=== PATIENT | female | born 2000 | race Caucasian/White ===

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

== ENCOUNTER 2021-07-28 15:36 | Outpatient (NON) | payer BC, SELFPAY | END 2021-07-28 15:37 | disposition home or self-care (01) | LOC: CHSLAB 15:39 | PROVIDERS: Visit Provider Nurse Practitioner Family | DX: Z11.3 Encounter for screening for infections with a predominantly sexual mode of transmission (principal); R10.31 Right lower quadrant pain; R10.32 Left lower quadrant pain; N39.0 Urinary tract infection, site not specified | CPT/HCPCS: 87077; 87086; 87088; 87186; 87491; 87591; 87661 ==

== ENCOUNTER 2022-02-16 09:19 | Outpatient (CLI) | payer BC, SELFPAY ==
[2022-02-16 10:14] LABS: Strep Group A RT-PCR Not Detected (Negative)
== END 2022-02-16 09:20 | disposition home or self-care (01) ==
LOC: CHSLAB 09:24
PROVIDERS: PCP Nurse Practitioner Family; Visit Provider Nurse Practitioner Family
DX: J02.9 Acute pharyngitis, unspecified (principal)
CPT/HCPCS: 87651

== ENCOUNTER 2022-11-04 15:37 | Outpatient (NON) | payer SELFPAY | END 2022-11-04 15:38 | disposition home or self-care (01) | LOC: CHSLAB 15:41 | PROVIDERS: Visit Provider Nurse Practitioner Family | DX: Z12.4 Encounter for screening for malignant neoplasm of cervix (principal); Z11.51 Encounter for screening for human papillomavirus (HPV); Z11.8 Encounter for screening for other infectious and parasitic diseases | CPT/HCPCS: 87491; 87591; 88141; 88175; G0145 ==

== ENCOUNTER 2023-01-30 01:09 | Emergency (ER) | payer BC, SELFPAY ==
[2023-01-30] VITALS (7 sets, daily range): BP systolic 118–160; BP diastolic 88–114; PULSE 80–112; RESP 18–20; TEMP 35.8; O2SAT 91–99
--- NOTE | 2023-01-30 01:16 | ECG_ITS ---
Measurements Intervals [place] Rate: 89 P: 80 [place]: 122 QRS: 72 QRSD: 94 T: 68 QT: 395 QTc: 481 Interpretive Statements SINUS RHYTHM INCOMPLETE RIGHT BUNDLE BRANCH BLOCK BASELINE ARTIFACT- I, II, AVR BORDERLINE ECG NO PREVIOUS ECG AVAILABLE FOR COMPARISON Electronically Signed On 01-30-2023 7:06:19 SANITATION SUPERVISOR by Harpal Cano D.O.
--- NOTE | 2023-01-30 01:50 | ED.ANXIETY ---
HPI - Anxiety General Chief Complaint: Anxiety Stated Complaint: SOB Source: patient Mode of arrival: ambulatory Limitations: no limitations History of Present Illness HPI narrative: Patient is a 22-year-old female with a significant past medical history presents today for shortness of breath and chest pain. She has had shortness of breath and chest pain since earlier today. She states that she was unable to sleep. She says chest pain when he feels like tightness and she is having trouble breathing and dyspnea. She is with her boyfriend he states he heard audible wheezing. She does not have any history of asthma. However she does smoke weed and vapes. She has never had anything like this in the past. She is also very anxious. MD complaint: anxiety and shortness of breath Onset (ago): hour(s) Symptoms: dyspnea and chest pain Severity: moderate Quality: constant Place: home History of similar episodes: No Provoking factors: none known Relieving factors: nothing Exacerbating factors: nothing Associated symptoms: chest pain, shortness of breath and palpitations Related Data Home Medications Medication Instructions Recorded Confirmed levonorgestrel 21 mcg/24 hours (8 1 device intrauterine ONCE 07/28/21 01/30/23 yrs) 52 mg intrauterine device (Mirena) Allergies Allergy/AdvReac Type Severity Reaction Status Date / Time No Known Allergies Allergy Verified 01/30/23 02:18 Review of Systems Review of Systems: All systems reviewed & are unremarkable except as noted in HPI and below Constitutional: Constitutional: Reports no additional constitutional complaints Eyes: Eyes: Reports no additional eye complaints ENT: Reports system reviewed and no additional complaints, except as documented Cardiovascular: Cardiovascular: Reports chest pain Respiratory: Respiratory: Reports cough, Reports dyspnea and Reports wheezing Gastrointestinal: Gastrointestinal: Reports no additional gastrointestinal complaints Genitourinary: Genitourinary: Reports no additional female genitourinary complaints Musculoskeletal: Musculoskeletal: Reports no additional musculoskeletal complaints Integumentary/Breasts: Skin/Breast: Reports system reviewed and no additional complaints, except as docu Neurologic: Reports system reviewed and no additional complaints, except as documented Psychiatric: Psychiatric: Reports no additional psychiatric complaints Endocrine: Endocrine: Reports no additional endocrine complaints Hematologic/Lymphatic: Hematologic/Lymphatic: Reports no additional hematologic/lymphatic complaints [facility] Past Medical History Medical History Acne Allergies Depression Surgical History Surgical History No significant past surgical history Family History Family History Father Hypertension Mother Family history of hypothyroidism Hypertension Social History Social History Smoking status: Never smoker Tobacco type: cigarettes Second hand tobacco smoke exposure: No Alcohol intake: current Substance use: current Substance use type: marijuana Lack of Transportation: No Lack of Food: Never True Current Housing: I Have Housing Concerned About Future Housing: No Difficulty Paying Gas/Electric Bills: No Difficulty Paying for Meds: No Currently Unemployed: No Education: Associate Degree Difficulty w/ Childcare or Family Care: No Living arrangements: with family Occupation/Education: occupation Gender identity (if verbalized by the patient): Female Sexual Orientation (if Verbalized by the Patient): Straight or Heterosexual Exam Const: General: healthy appearing and no acute distress Nutritional Appearance: well nourished Orientation/cons
[2023-01-30] MEDS: LORazepam (*CRX) 1 MG TABLET PO (01:56)
[2023-01-30] MEDS: IPRATROPIUM 0.5 MG/ALBUTEROL SULFATE 2.5 MG AMPUL.NEB 3 ML INHALATION ×2 (01:58→03:02)
== END 2023-01-30 03:47 | disposition home or self-care (01) ==
PROVIDERS: Emergency Provider Family Medicine; PCP Nurse Practitioner Family
DX: J45.909 Unspecified asthma, uncomplicated (principal); F41.9 Anxiety disorder, unspecified; F12.90 Cannabis use, unspecified, uncomplicated; F17.290 Nicotine dependence, other tobacco product, uncomplicated
CPT/HCPCS: 93005; 94640; 96372; 99284; A9270; J1100

== ENCOUNTER 2023-03-31 14:47 | Outpatient (CLI) | payer BC, SELFPAY ==
[2023-03-31 16:00] LABS: Alanine Aminotransferase 19 U/L (14-59); Albumin Level 4.3 g/dL (3.4-5.0); Alkaline Phosphatase 60 U/L (46-116); Anion Gap 9 mmol/L (8-16); Aspartate Amino Transferase 12 U/L (15-37); Bilirubin,Total 0.8 mg/dL (0.00-1.00); Blood Urea Nitrogen 10 mg/dL (7-18); Calcium 8.9 mg/dL (8.5-10.1); Carbon Dioxide 30 mmol/L (21-32); Chloride 105 mmol/L (98-108); Estimated Glomerular Filt Rate > 60; Free T4 Free Thyroxine 0.83 ng/dL (0.76-1.46); Glucose 75 mg/dL (70-99); Magnesium 2.2 mg/dL (1.8-2.4); Osmolality Calculated 296 mOsm/kg (285-295); Potassium 3.5 mmol/L (3.5-5.1); Sodium 144 mmol/L (136-145); Thyroid Stimulating Hormone 0.73 uIU/mL (0.36-3.74); Total Protein 7.3 g/dL (6.4-8.2); Vitamin B12 433 pg/mL (193-986)
[2023-04-04 14:05] LABS: Vitamin D 25 Hydroxy 39 ng/mL (30-100)
== END 2023-03-31 14:48 | disposition home or self-care (01) ==
LOC: CHSLAB 14:51
PROVIDERS: PCP Nurse Practitioner Family; Visit Provider Nurse Practitioner Family
DX: E03.9 Hypothyroidism, unspecified (principal); F32.9 Major depressive disorder, single episode, unspecified; Z79.899 Other long term (current) drug therapy
CPT/HCPCS: 36415; 80053; 82306; 82607; 83735; 84439; 84443

== ENCOUNTER 2023-04-29 07:27 | Outpatient (RCR) | payer BC, SELFPAY ==
[2023-02-04 08:15] LABS: Pregnancy On Board Control Positive; Urine Pregnancy Test Negative
[2023-02-04 08:56] LABS: Cholesterol 148 mg/dL (0-200); GGT 29 U/L (5-55); HDL Direct 80 mg/dL (40-60); LDL Cholesterol Calculated 64 mg/dL (<130); Triglycerides 22 mg/dL (0-150)
[2023-03-25 07:26] LABS: Pregnancy On Board Control Positive; Urine Pregnancy Test Negative
[2023-03-25 08:14] LABS: Cholesterol 124 mg/dL (0-200); GGT 23 U/L (5-55); HDL Direct 59 mg/dL (40-60); LDL Cholesterol Calculated 60 mg/dL (<130); Triglycerides 26 mg/dL (0-150)
[2023-04-29 07:56] LABS: Pregnancy On Board Control Positive; Urine Pregnancy Test Negative
[2023-04-29 08:35] LABS: Cholesterol 148 mg/dL (0-200); GGT 25 U/L (5-55); HDL Direct 76 mg/dL (40-60); LDL Cholesterol Calculated 65 mg/dL (<130); Triglycerides 35 mg/dL (0-150)
== END 2023-05-05 23:59 | disposition home or self-care (01) ==
LOC: CHSLAB 07:27
PROVIDERS: PCP Nurse Practitioner Family
DX: L70.0 Acne vulgaris (principal)
CPT/HCPCS: 36415; 80061; 81025; 82977

== ENCOUNTER 2023-06-03 07:15 | Outpatient (RCR) | payer BC, SELFPAY ==
[2023-06-03 07:36] LABS: Pregnancy On Board Control Positive; Urine Pregnancy Test Negative
[2023-06-03 08:38] LABS: Cholesterol 164 mg/dL (0-200); GGT 27 U/L (5-55); HDL Direct 80 mg/dL (40-60); LDL Cholesterol Calculated 76 mg/dL (<130); Triglycerides 40 mg/dL (0-150)
== END 2023-09-01 23:59 | disposition home or self-care (01) ==
LOC: CHSLAB 07:15
PROVIDERS: PCP Nurse Practitioner Family
DX: L70.0 Acne vulgaris (principal)
CPT/HCPCS: 36415; 80061; 81025; 82977

== ENCOUNTER 2023-10-27 14:46 | Outpatient (NON) | payer BC, SELFPAY | END 2023-10-27 14:47 | disposition home or self-care (01) | LOC: CHSLAB 14:50 | PROVIDERS: Visit Provider Nurse Practitioner Family | DX: Z12.4 Encounter for screening for malignant neoplasm of cervix (principal); Z11.51 Encounter for screening for human papillomavirus (HPV); Z11.8 Encounter for screening for other infectious and parasitic diseases | CPT/HCPCS: 87491; 87591; 87624; 87625; 88141; 88175; G0145 ==

== ENCOUNTER 2025-03-12 10:37 | Emergency (ER) | payer BC, SELFPAY ==
--- NOTE | ~2025-03-12 | CT_ITS ---
EXAMINATION: CT brain wo con, CT orbit BI wo con DATE: 03/12/2025 11:15 INDICATION: Anisocoria TECHNIQUE: 1. Computed tomography (CT) of the head was performed without intravenous contrast. Sagittal and coronal reconstructions were performed. The mA was adjusted according to patient size. Iterative reconstruction technique was employed. The dose-length product was 605.33 mGy-cm. 2. CT of the orbits was performed without intravenous contrast. Sagittal and coronal reconstructions were performed. Automated exposure control and iterative reconstruction technique were employed. The dose-length product was 162.94 mGy-cm. COMPARISON: None FINDINGS: No acute intracranial hemorrhage, acute infarction or abnormal extra axial fluid collection. Ventricles are normal and symmetric. No mass/mass effect. The orbits, paranasal sinuses and mastoid air cells are normal. IMPRESSION: 1. Normal CT of the brain and orbits. Reviewed, dictated and finalized at location A. STOS CLOTH INSPECTOR IMPRESSION: 1. Normal CT of the brain and orbits.
[2025-03-12 10:43] VITALS: BP 124/88; PULSE 97; RESP 14; TEMP 36.9; O2SAT 100
--- NOTE | 2025-03-12 12:16 | ED.EYEPROB ---
HPI - Eye Problem General Chief complaint: Eye Problems Stated complaint: Dilated Eye Time Seen by Provider: 03/12/25 10:41 Source: patient and family Mode of arrival: ambulatory Limitations: no limitations History of Present Illness HPI Narrative: This is a 24-year-old female with no significant past medical history does have a history of depression and anxiety and currently on medication for acne presents with some an enlarged right pupil that is nonreactive extraocular eye movements are intact patient has no pain no trauma to the to the eye no head injury no neurological deficits no nausea vomiting no history of migraines nonsmoker uses no eye drops. chief complaint: other Onset (ago): hour(s) Onset description: sudden Duration: constant Location: right eye Eye Symptoms: blurry vision and photophobia Place: work Mechanism: none Severity: mild Related Data Home Medications ?Medication ?Instructions ?Recorded ?Confirmed ?Last Taken ?Type levonorgestrel (Mirena) 1 device intrauterine ONCE 07/28/21 03/31/23 01/30/23 History diazepam 5 mg tablet mg 03/12/25 Unknown History ondansetron 4 mg disintegrating mg 03/12/25 Unknown History tablet sertraline 50 mg tablet mg 03/12/25 Unknown History spironolactone 100 mg tablet mg 03/12/25 Unknown History Allergies Allergy/AdvReac Type Severity Reaction Status Date / Time paroxetine AdvReac Intermediate seizure Verified 03/12/25 10:40 like activity Review of Systems Review of Systems: All systems reviewed & are unremarkable except as noted in HPI and below PMFSH Past Medical History Medical History Allergies Depression Acne Surgical History Surgical History No significant past surgical history Family History Family History Father Hypertension Mother Family history of hypothyroidism Hypertension Social History Social History Smoking status: Never smoker Tobacco type: cigarettes Second hand tobacco smoke exposure: No Alcohol intake: current Substance use: current Substance use type: marijuana Lack of Transportation: No Lack of Food: Never True Current Housing: I Have Housing Concerned About Future Housing: No Difficulty Paying Gas/Electric Bills: No Difficulty Paying for Meds: No Currently Unemployed: No Education: Associate Degree Difficulty w/ Childcare or Family Care: No Living arrangements: with family Occupation/Education: occupation Gender identity (if verbalized by the patient): Female Sexual Orientation (if Verbalized by the Patient): Straight or Heterosexual Exam Const: General: healthy appearing Nutritional Appearance: well nourished Orientation/consciousness: patient oriented x3 Limitations: no limitations Eyes: Direct Ophthalmoscopy: photophobia Other: Right pupil is some dilated and nonreactive extraocular eye movements are intact Neck: Neck: normal visual inspection Chest: Chest palpation & inspection: normal inspection of the chest Resp: Effort & Inspection: normal respiratory effort Auscultation: clear to auscultation bilaterally Cardio: Rate: regular rate Rhythm: regular rhythm Neuro: General: patient oriented x3, moves all extremities, no meningeal signs, no focal motor deficits and CN's II-XI intact bilaterally Cranial nerves: Yes Nystagmus not present Speech: normal speech Gait exam (Neuro): Normal gait present Course Course Emergency Course: Medical decision making narrative: The patient was evaluated by myself in the emergency department. History obtained from the patient who is an independent historian and physical exam performed witnessed by nurse. Patient had CT scan of the orbits and CT scan of the brain which were unremarkable with no acute abnormalities. Spoke with some ophthalmology at [facility] that will see the patient on an outpatient basis scheduled for tomorrow at 11:00 a.m. on an outpatient clinic with Dr. Montes De Oca. Repeat assessment: Patient doing well on repeat exam visual acuity is 2020 with no acute distress Symptoms are stable since arrival to the emergency department Repeat vitals are stable Patient agrees with discussion and after shared medical decision-making and agrees with discharge and with follow-up with ophthalmology as [facility]. All questions answered to the patient's satisfaction Patient provided with strict return precautions and return to the emergency department if any worsening symptoms. Vital Signs Vital signs: Vital Signs Temperature 36.9 C 03/12/25 10:43 Pulse Rate 97 03/12/25 10:43 Respiratory Rate 14 03/12/25 10:43 Blood Pressure 124/88 03/12/25 10:43 Pulse Oximetry 100 03/12/25 10:43 Oxygen Delivery Room Air 03/12/25 10:43 Temperature 36.9 C 03/12/25 10:43 Pulse Rate 97 03/12/25 10:43 Respiratory Rate 14 03/12/25 10:43 Blood Pressure 124/88 03/12/25 10:43 Pulse Oximetry 100 03/12/25 10:43 Oxygen Delivery Room Air 03/12/25 10:43 MDM Differential Diagnosis Differential Diagnosis: Anisocoria Imaging Data Radiologist's impression: ITS Impressions Head CT 03/12/25 11:19 IMPRESSION: 1. Normal CT of the brain and orbits. Orbit CT 03/12/25 11:19 IMPRESSION: 1. Normal CT of the brain and orbits. Critical Care Time Critical Care Time Critical Care Time: No Discharge Plan Discharge Clinical Impression: Anisocoria Patient Disposition: Home Condition: Stable Instructions: Antibiotic Form, Blurred Vision (ED) Additional Instructions: Advised to keep follow-up appointment at [facility] as scheduled. Patient Language: Bulgarian Prescriptions: No Action albuterol sulfate 90 mcg/actuation HFA aerosol inhaler 2 puff inhalation QID PRN (Reason: shortness of breath or wheezing) Qty: 6.7 0RF spironolactone 100 mg tablet ondansetron 4 mg tablet,disintegrating sertraline 50 mg tablet diazepam 5 mg tablet Mirena 20 mcg/24 hours (7 yrs) 52 mg intrauterine device 1 device intrauterine ONCE Rx Instructions: as a single dose cetirizine 10 mg tablet See Rx Instructions .ROUTE .COMPLEX Qty: 30 2RF Dose Instruction: TAKE ONE TABLET BY MOUTH DAILY NEEDED Rx Instructions: TAKE ONE TABLET BY MOUTH DAILY NEEDED Follow-up/Referrals: Clarissa Alicea NP [Primary Care Provider, Family Practice] Time of Disposition: 12:21
--- OUTSIDE RECORDS SUMMARY | 2025-03-12 12:18 | XMS_ITS | Clinical Summary ---
Author Organization [facility] Address [address] [place] [address] Care Team Providers Care Christmas Bell Ringer Name Role Phone No, Pcp BLOOD COLLECTOR Primary Care Provider Unavailabl e Social History Tobacco Use Types Packs/Day Years Used Date Smoking Tobacco: Never Assessed Comments Unknown Sex and Gender Information Value Date Recorded Sex Assigned at Not on file Legal Sex Female 4:33 PM EST Gender Identity Not on file Sexual Orientation Not on file Plan of Treatment Not on file Medical Devices Not on file Insurance [facility] Care Teams Christmas Bell Ringer Relationship Specialty Start Date End Date No, Pcp, BLOOD COLLECTOR N/A Do not use PCP - General Family Medicine 01/30/20
--- OUTSIDE RECORDS SUMMARY | 2025-03-12 12:18 | XMS_ITS | Clinical Summary ---
Author Organization [facility] Address [address] [place] [address] Care Team Providers Care Emergency Care Attendant Name Role Phone Unavailable Primary Care Provider Unavailabl e Source Comments [facility],non-owned Affiliates and Associated Physician Practices is amultiple site organization consisting of ambulatory clinics and hospital sitesin [place], [place], [place] and [place]. This disclosure is being madepursuant to the Care Everywhere program and may not contain all information available regarding this patient. Last updated 17.[facility] Encounters Date Type Department Care Team Description 03/12/2025 Telephone [facility] - Ophthalmology [address] [place] [phone] Arash Hardy MD Eye Problem from Last 3 Months Social History Tobacco Use Types Packs/Day Years Used Date Smoking Tobacco: Never Assessed Comments Unknown Sex and Gender Information Value Date Recorded Sex Assigned at Not on file Legal Sex Female 10:17 AM CDT Gender Identity Not on file Sexual Orientation Not on file Plan of Treatment Health Maintenance Due Date Last Done Comments HIV SCREENING 2016 HPV VACCINE (1 - 3-dose series) 2016 CHLAMYDIA/GONORRHEA SCREENING 2017 MENINGOCOCCAL (Group B) VACC INE SHARED DECISION-MAKING (1 of 2 - Standard) 2017 HEPATITIS C SCREENING 04/27/2019 DTAP/TDAP/TD VACCINES (1 - Tdap) 2020 HEPATITIS B VACCINE (1 of 3 - 19+ 3-dose series) 2020 DEPRESSION SCREENING 03/22/2024 COVID-19 VACCINE (1 - 2024-2 6 season) 2024 INFLUENZA VACCINE (#1) 2024 ZOSTER VACCINE (1 of 2) 2051 HIB VACCINE Aged Out No longer eligi ble based on patient's age to complete this topic MENINGOCOCCAL GROUPS A/C/Y/W VACCINE Aged Out No longer eligible b ased on patient's age to complete this topic PNEUMOCOCCAL VACCINE Aged Out No long er eligible based on patient's age to complete this topic
--- OUTSIDE RECORDS SUMMARY | 2025-03-12 12:18 | XMS_ITS | Encounter Summary ---
Author Organization [facility] Address [address] [place] [address] Care Team Providers Care Warehouse Helper Name Role Phone Unavailable Primary Care Provider Unavailabl e Reason for Visit * Reason Onset Date Comments Eye Problem 03/12/2025 Encounter Details Date Type Department Care Team (Late st Contact Info) Description 03/12/2025 Telephone [facility] [address] [place] [phone] Arash Hardy MD [address] [place] [address] Eye Problem Social History Tobacco Use Types Packs/Day Years Used Date Smoking Tobacco: Never Assessed Comments Unknown Sex and Gender Information Value Date Recorded Sex Assigned at Not on file Legal Sex Female 10:17 AM CDT Gender Identity Not on file Sexual Orientation Not on file documented as of this encounter Miscellaneous Notes * Telephone Encounter - Arash Hardy MD - 03/12/2025 11:55 AM CST Transfer Center Call Summary Called by transfer center regarding Bernice Espana, a 24 year old female currently in the Outside ED.Per [facility] care team, who presented for anisocoria (right dilated pupil) with no pain or discomfort but mildly blurred vision. Denies any injury or hx of migraines. Stable BP. CT orbits and brain unremarkable. EOM Full OU, no ptosis noted. Exam per [facility] provider: - [place] 20/20 OD, 20/20 OS Reminded provider that we cannot fully exclude vision-threatening or life- threatening problems via remote evaluation. While we can offer recommendations based on the information provided to us, decision-making is ultimately the provider's responsibility and we would be happy to evaluate the patientmore urgently if the provider and patient so choose. Plan: Will schedule outpatient follow-up on [facility] on 03/13/25 at 11am. Informed [facility] team to let pt know of our clinic phone number ([phone]), and that pts without insurance will be charged a $100 co-pay with additional procedure-specific charges. Asked [facility] team to push imaging to [facility]/ and/or give pt copy of imaging on CD and ask pt to bring to follow-up appointment. Arash Hardy MD Ophthalmology Resident 03/12/2025 12:12 PM ALOMETRIC ANALYST documented in this encounter Plan of Treatment Not on file documented as of this encounter Visit Diagnoses Not on filedocumented in this encounter
[2025-03-12 12:44] VITALS: BP 130/88; PULSE 92; RESP 14; O2SAT 99
--- OUTSIDE RECORDS SUMMARY | 2025-03-12 12:56 | XMS_ITS | Clinical Summary ---
Author Organization [facility] Address [address] [place] [address] Care Team Providers Care Commercial Loan Closer Name Role Phone No, Pcp RESPIRATORY CARE INSTRUCTOR Primary Care Provider Unavailabl e Social History Tobacco Use Types Packs/Day Years Used Date Smoking Tobacco: Never Assessed Comments Unknown Sex and Gender Information Value Date Recorded Sex Assigned at Not on file Legal Sex Female 4:33 PM EST Gender Identity Not on file Sexual Orientation Not on file Plan of Treatment Not on file Medical Devices Not on file Insurance [facility] Care Teams Commercial Loan Closer Relationship Specialty Start Date End Date No, Pcp, RESPIRATORY CARE INSTRUCTOR N/A Do not use PCP - General Family Medicine 01/30/20
--- OUTSIDE RECORDS SUMMARY | 2025-03-12 12:57 | XMS_ITS | Clinical Summary ---
Author Organization [facility] Address [address] [place] [address] Care Team Providers Care Hat Blocking Operator Name Role Phone Unavailable Primary Care Provider Unavailabl e Source Comments [facility],non-owned Affiliates and Associated Physician Practices is amultiple site organization consisting of ambulatory clinics and hospital sitesin [place], [place], [place] and [place]. This disclosure is being madepursuant to the Care Everywhere program and may not contain all information available regarding this patient. Last updated 17.[facility] Encounters Date Type Department Care Team Description 03/12/2025 Telephone [facility] [address] [place] [phone] Arash Hardy MD Eye Problem from Last 3 Months Social History Tobacco Use Types Packs/Day Years Used Date Smoking Tobacco: Never Assessed Comments Unknown Sex and Gender Information Value Date Recorded Sex Assigned at Not on file Legal Sex Female 10:17 AM CDT Gender Identity Not on file Sexual Orientation Not on file Plan of Treatment Upcoming Encounters Date Type Department Care Team (Late st Contact Info) Description 03/13/2025 11:00 AM MANAGER PORT Office Visit [facility] [address] [place] [phone] Health Maintenance Due Date Last Done Comments [...]
--- OUTSIDE RECORDS SUMMARY | 2025-03-12 12:57 | XMS_ITS | Encounter Summary ---
Author Organization [facility] Address [address] [place] [address] Care Team Providers Care Certified Legal Investigator Name Role Phone Unavailable Primary Care Provider Unavailabl e Reason for Visit * Reason Onset Date Comments Eye Problem 03/12/2025 Encounter Details Date Type Department Care Team (Late st Contact Info) Description 03/12/2025 Telephone [facility] [address] [place] [phone] Arash Hardy MD [address] [place] [address] Eye Problem Social History Tobacco Use Types [...] choose. Plan: Will schedule outpatient follow-up on [facility] on 03/13/25 at 11am. Informed [facility] team to let pt know of our clinic phone number ([phone]), and that pts without insurance will be charged a $100 co-pay with additional procedure-specific charges. Asked [facility] team to push imaging to [facility]/ and/or give pt copy of imaging on CD and ask pt to bring to follow-up appointment. Arash Hardy MD Ophthalmology Resident 03/12/2025 12:12 PM M OVEN OPERATOR documented in this encounter Plan of Treatment Upcoming Encounters Date Type Department Care Team (Late st Contact Info) Description 03/13/2025 11:00 AM STEAM OVEN OPERATOR Office Visit [facility] - Ophthalmology [address] [place] [phone] documented as of this encounter Visit Diagnoses Not on filedocumented in this encounter
--- OUTSIDE RECORDS SUMMARY | 2025-03-12 12:57 | XMS_ITS | Clinical Summary ---
Author Organization [facility] Address [facility] [place] [address] Care Team Providers Care Inspector Multifocal Lens Name Role Phone Consuelo Cardenas COMMISSIONED SECURITY OFFICER Primary Care Provider [phone] Medications medroxyPROGESTERon e (DEPO-PROVERA) 150 MG/ML injectionIndicatio ns:Dysmenorrhea Inject 1 mL (150 mg total) into the muscle every 3 (three) months. 1 mL 4 9 Active norethindrone-ethi nyl estradiol (BLISOVI FE 04/10) 1-20 MG-MCG tabletIndications: Encounter for surveillance of contraceptive pills Take 1 tablet by mouth daily. 84 tablet 3 0 Active Active Problems Problem Noted Date Diagnosed Date Primary nocturnal enuresis 09/16/2016 Acne 09/10/2016 Dysmenorrhea 09/10/2016 Immunizations Immunization Administration Dates Next Due Dtap 07/14/2006, 3,2001,08/21,2001 Fluzone 6 Months+ Quad (0.5 mL Prefilled Syringe) 01/17/2019 Hepatitis A (Generic) 07/14/2006 Hepatitis B (Generic Peds) 2001,2001 ,2001 Hib (Generic) 06/05/2002,2001,2001 MENINGOCOCCAL A C Y&W-135 oligosaccharide (MENVEO) 10/20/2018 MMR 06/05/2002 Meningcoccal Group B (Murtazaumen ba)(aka Meningitis) 10/20/2018 Opv 2001 Polio IPV (Ipol) 07/14/2006,2001, 2 Prevnar(Pcv 7) 2001 Varicella (Generic) 06/05/2002 Varicella/MMR (Proquad) 07/14/2006 Social History Tobacco Use Types Packs/Day Years Used Date Smoking Tobacco: Never Assessed Comments Unknown Sex and Gender Information Value Date Recorded Sex Assigned at Not on file Legal Sex Female 6:37 PM CDT Gender Identity Not on file Sexual Orientation Not on file Last Filed Vital Signs Vital Sign Reading Time Taken Comments Blood Pressure 120/72 09/10/2016 3:24 PM CDT Pulse 99 09/10/2016 3:24 PM CDT Temperature - - Respiratory Rate - - Oxygen Saturation - - Inhaled Oxygen Concentration - - Weight 48.1 kg (106 lb) 09/10/2016 3:24 PM CDT Height 152.5 cm (5' 0.05) 09/10/2016 3:24 PM CD T Body Mass Index 20.67 09/10/2016 3:24 PM CDT Plan of Treatment Health Maintenance Due Date Last Done Comments Annual Physical 2004 Hepatitis A Vaccines (2 of 2 - 2-dose series) 01/13/2007 07/14/2006 DTaP, Tdap and Td Vaccines (6 - Tdap) 2012 07/14/2006, 08/29/2002, 2001, Additional history exists HPV Vaccines (1 - 3-dose series) 2016 Meningococcal B Vaccine (2 of 2 - Trumenba SCDM 2-dose series) 04/22/2019 10/20/2018 Hepatitis C 2019 COVID-19 Vaccine ( season) 2024 Influenza Adult (#1) 2024 01/17/2019 Cervical Cancer Screening Pap Smear (Age 21 to 29) Every 3 Years 10/26/2026 10/27/2023 Cervical Cancer Screening 10/26/2026 Hepatitis B Vaccines Completed 2001, 2001, 2001 Meningococcal Vaccine Completed 10/20/2018 Pneumococcal Vaccine: Pediatrics (0 to 5 Years) and At-Risk Patients (6 to 49 Years) Aged Out No longer eligible based on patient's age to complete this topic RSV Immunizations Under 20 Months Aged Out No longer eligible based on patient's age to complete this topic Procedures Procedure Name Priority Date/Time Associated Diagnosis Comments HPV GENOTYPES 16, 18/45 Routine 10/27/2023 12:00 PM CDT from Last 3 Months or Most Recently Relevant to Health Maintenance Results * HPV GENOTYPES 16, 18/45 (10/27/2023 12:00 PM CDT) HPV 16 RNA NOT DETECTED NOT DETECTED 11/08/2023 8:05 AM CDT [facility] HPV 18/45 RNA NOT DETECTED NOT DETECTED 11/08/2023 8:05 AM CDT [facility] Comment: Methodology: Wire Puller-Mediated Amplification Cervical sources are required for HPV testing. If a vaginal source from a patient who has had a total hysterectomy with removal of cervix was submitted, please contact the testing laboratory for alternative testing options. The analytical performance characteristics of this assay have been determined by [place]. The modifications have not been cleared or approved by the FDA. This assay has been validated pursuant to the CLIA regulations and is used for clinical purposes. Test Performed by [facility], [employer] [place], [address] [place], [place] Darius Rider M.D., Ph.D., Director of Laboratories , CLIA [id number] 10/27/2023 12:0 0 PM CDT Clarissa Alicea [facility] PATHOLOGY/CYTOLOGY ORDERA BLES Final Result [facility] [address] [address], [place] , [place] [phone] from Last 3 Months or Most Recently Relevant to Health Maintenance Insurance [facility] Care Teams Inspector Multifocal Lens Relationship Specialty Start Date End Date Consuelo Cardenas FNP [address] [place] [id number] PCP - General Nurse Practitioner Family 10/20/18
== END 2025-03-12 12:44 | disposition home or self-care (01) ==
PROVIDERS: Emergency Provider Emergency Medicine; PCP Nurse Practitioner Family
DX: H57.02 Anisocoria (principal); F32.A Depression, unspecified; Z79.899 Other long term (current) drug therapy
CPT/HCPCS: 70450; 70480; 99284